=== PATIENT | male | born 1975 | race Caucasian/White ===

== ENCOUNTER → 2023-03-10 14:46 | Outpatient (BNVA) | payer SELFPAY | PROVIDERS: Visit Provider Physician Assistant Medical | DX: Z02.79 Encounter for issue of other medical certificate (principal) ==

== ENCOUNTER → 2024-04-13 15:08 | Outpatient (BNVA) | payer SELFPAY | PROVIDERS: Visit Provider Physician Assistant ==

== ENCOUNTER 2024-08-11 04:06 | Emergency (ER) | payer BC, SELFPAY ==
[2024-08-11] VITALS (9 sets, daily range): BP systolic 98–147; BP diastolic 51–82; PULSE 69–96; RESP 14–22; TEMP 36.1–37.1; O2SAT 94–100; BMI 27.3
[2024-08-11] MEDS: EPINEPHrine 1 MG/ML VIAL 0.3 MG IM (04:21)
[2024-08-11] MEDS: Famotidine/PF 20 MG/2 ML VIAL IVPUSH (04:22)
[2024-08-11] MEDS: methylPREDNISolone Sod Succ 125 MG/2 ML VIAL IVPUSH ×2 (04:22→06:17)
[2024-08-11] MEDS: diphenhydrAMINE HCL 50 MG/ML VIAL IVPUSH ×2 (04:22→06:17)
[2024-08-11] MEDS: 0.9 % Sodium Chloride 1,000 ML 999 ML IVCONT (04:23)
--- NOTE | 2024-08-11 04:24 | ED.ALLEREA ---
HPI - Allergic Reaction General Chief complaint: Allergic Reaction Stated complaint: allergic reaction Time Seen by Provider: 08/11/24 04:19 Source: patient and family Mode of arrival: ambulatory Limitations: no limitations History of Present Illness ED Provider: Dr. Marlee Vail HPI narrative: Patient comes to the emergency room complaining of feeling that his throat is swelling up. Patient has a bit short of breath and a bit tight. Patient states that this has happened multiple times. It is always food related. Patient denies any hives, no itchiness, no wheezing. Patient states that this has happened before usually with certain foods but unclear what it is. Patient has been seen multiple times by allergies, all the skin scratch test are nonspecific. 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 Patient denies being on any blood pressure medications Related Data Allergies Allergy/AdvReac Type Severity Reaction Status Date / Time No Known Allergies Allergy Verified 08/11/24 04:21 Review of Systems Review of Systems: Constitutional : No Weight loss, No Fever, No Chills, No Night Sweats, No Fatigue, No Malaise ENT/Mouth : No Hearing loss, No Ear Pain, No Nasal Congestion, No Sinus Pain, No Hoarseness, no sore throat, complaining of throat swelling. No Rhinorrhea, No Swallowing Difficulty Eyes: No Eye Pain, No Swelling, No Redness, No Foreign Body, No Discharge, No Vision Changes Cardiovascular : No Chest Pain, No SOB, No Dyspnea on Exertion, No Orthopnea, No Edema, No Palpitations Respiratory : No Cough, No Sputum, No Wheezing, No Smoke Exposure, No Dyspnea Gastrointestinal : No Nausea, No Vomiting, No Diarrhea, No Constipation, No abdominal Pain, No Hematochezia, No Melena Genitourinary : no irregular bleeding, No Dysuria, No Urinary Frequency, No Hematuria, No Urinary Incontinence, No Urgency, No Flank Pain, No Urinary Flow Changes, No Hesitancy Musculoskeletal : No joint pain, No Myalgias, No Joint Swelling Skin : No Skin Lesions, No rash Neuro : No Weakness, No Numbness, No Paresthesias, No Loss of Consciousness, No Dizziness, No Headache Psych : No Anxiety/Panic, No Depression, No SI/HI/AH/VH, No Social Issues, Heme/Lymph: No Bruising, No Bleeding,No Lymphadenopathy Endocrine : No Polyuria, No Polydipsia, No Temperature Intolerance [facility] Past Medical History Medical History (Updated 08/11/24 @ 06:15 by Marlee Vail MD) Hyperlipidemia Social History Social History Smoked in Last 30 Days: No Advance Directives: No Physical Exam ED Vital Signs: Vital Signs - 24 hr 08/11/24 04:19 08/11/24 04:21 08/11/24 04:28 Temperature 97.0 F Pulse Rate 69 87 88 Respiratory Rate 22 H 20 Blood Pressure 98/51 L 134/82 Pulse Oximetry 100 100 Oxygen Delivery Method Room Air 08/11/24 04:36 08/11/24 04:47 08/11/24 05:01 Temperature Pulse Rate 85 88 84 Respiratory Rate 16 16 Blood Pressure 147/76 H 134/74 135/74 Pulse Oximetry 98 97 98 Oxygen Delivery Method Room Air Room Air Room Air 08/11/24 06:00 Temperature 98.7 F Pulse Rate 96 Respiratory Rate 14 Blood Pressure 117/63 Pulse Oximetry 94 Oxygen Delivery Method Room Air BMI result Body Mass Index 27.3 Const Other: Appearance: Alert. Oriented X3. No acute distress. Eyes: Pupils equal, round and reactive to light. ENT: Patient's lips and tongue within normal limits, soft palate edematous, phlegmon and like appearance, patient has angioedema Neck: Normal inspection. Neck supple. No lymph nodes noted. No crepitus CVS: Normal heart rate and rhythm. Pulses normal. Normal S1 and S2 Respiratory: No respiratory distress. Breath sounds normal. No Wheezing. No rales Abdomen: Soft and nontender. No rigidity. No distention. Skin: Skin warm and dry. Normal skin color. Normal skin turgor. Extremities: No lower extremity edema. No Lacerations. No Rash Neuro: Oriented X 3. No motor deficit. No sensory deficit. Moving all extremities. No slurred speech. CN 2 through 12 grossly intact Psych: calm, cooperative, normal affect Course Course Course Narrative: Patient being given epinephrine IM, IV famotidine diphenhydramine and methylprednisolone, also normal saline This does not look like a typical allergic reaction, but clearly patient does have angioedema. Possibly undiagnosed hereditary angioedema? Medications Administered Discontinued Medications Generic Name Dose Route Start Last Admin Trade Name Freq PRN Reason Stop Dose Admin Diphenhydramine HCl 50 mg 08/11/24 04:19 08/11/24 04:22 Diphenhydramine Hcl 50 Mg/Ml Vial IVPUSH 08/11/24 04:20 50 mg ONCE ONE Administration Diphenhydramine HCl 50 mg 08/11/24 06:08 08/11/24 06:17 Diphenhydramine Hcl 50 Mg/Ml Vial IVPUSH 08/11/24 06:09 50 mg ONCE ONE Administration Epinephrine 0.3 mg 08/11/24 04:19 08/11/24 04:21 Epinephrine 1 Mg/Ml Vial IM 08/11/24 04:20 0.3 mg STAT STA Administration Famotidine 20 mg 08/11/24 04:19 08/11/24 04:22 Famotidine/Pf 20 Mg/2 Ml Vial IVPUSH 08/11/24 04:20 20 mg ONCE ONE Administration Sodium Chloride 1,000 mls @ 999 mls/hr 08/11/24 04:19 08/11/24 05:29 Ns IVCONT 08/11/24 05:19 Infused .Q1H1M ONE Infusion Methylprednisolone Sodium Succinate 125 mg 08/11/24 04:19 08/11/24 04:22 Methylprednisolone Sod Succ 125 Mg/2 Ml Vial IVPUSH 08/11/24 04:20 125 mg ONCE ONE Administration Methylprednisolone Sodium Succinate 125 mg 08/11/24 06:08 08/11/24 06:17 Methylprednisolone Sod Succ 125 Mg/2 Ml Vial IVPUSH 08/11/24 06:09 125 mg ONCE ONE Administration Medical Decision Making Medical Decision Making MDM Narrative: No significant abnormality in patient's hematology and chemistry. After the 1st course of IV medications, patient states that he feels much better. Patient states that his throat feels less swollen, can swallow and breathe better. Denies any chest pressure or tightness Patient's vitals have remained stable. Patient is still has edema in the uvula and soft palate but seems to be reduced than when he 1st came in Patient receiving a 2nd dose of Solu-Medrol and Benadryl. Then we will reassess. I discussed with the patient that the recommendation is hospitalization. Given the amount of swelling that he had, it would be best to keep him in the hospital. Patient states that he would prefer to go home if he has improvement. We will go ahead and give him the 2nd dose of medications, if he has significant improvement, patient may be able to go home. However , this is unlikely. Sign out given to my colleague Dr. Avalos Differential Diagnosis Differential Diagnoses: The differential diagnosis associated with the presentation includes (Anaphylaxis, angioedema, hereditary angioedema) Admission/Observation Consideration of admission/observation: Escalation of care including admission/observation considered Lab Data MDM Lab Attestation statement: I reviewed the patient's lab results. 08/11/24 04:46 08/11/24 04:46 Labs: Lab Results 08/11/24 Range/Units 04:46 WBC 7.3 (4.8-10.8) X10*3/uL RBC 5.34 (4.60-5.80) X10*6/uL Hgb 15.6 (14.0-18.0) g/dl Hct 45.4 (42.0-52.0) % MCV 85.0 (80.0-98.0) fL MCH 29.2 (27.0-33.0) pg MCHC 34.4 (31.0-36.0) g/dl RDW 12.5 (11.0-16.0) % Plt Count 236 (160-400) X10*3/uL MPV 10.4 (9.4-12.4) fL Immature Gran % (Auto) 0.3 (0.0-0.4) % Neut % (Auto) 46.0 (45-73) % Lymph % (Auto) 39.3 (20-40) % Kern % (Auto) 10.5 (2-11) % Eos % (Auto) 3.3 (0-4) % Baso % (Auto) 0.6 (0-2) % Lymph # (Auto) 2.9 (1.2-4.9) X10*3/uL Kern # (Auto) 0.8 (0.1-1.2) X10*3/uL Eos # (Auto) 0.2 (0.0-0.4) X10*3/uL Baso # (Auto) 0.0 (0.0-0.2) X10*3/uL Abs Immat Gran (auto) 0.02 (0.00-0.03) X10*3/uL Absolute Neuts (auto) 3.4 (2.0-8.3) x10*3/uL Absolute Nucleated RBC 0.000 (0.0-0.012) X10*3/uL Nucleated RBC % (auto) 0.0 (0.0-0.2) /100WBC Sodium 141 (135-145) mmol/L Potassium 4.1 (3.3-5.1) mmol/L Chloride 108 (96-108) mmol/L Carbon Dioxide 23 (22-29) mmol/L Anion Gap 14 (12-20) BUN 17 H (9-16) mg/dL Creatinine 0.83 (0.5-1.4) mg/dL Estim Creat Clear Calc 108.8 Estimated GFR > 60 Random Glucose 182 H (60-115) mg/dL Calcium 8.8 (8.4-10.2) mg/dL Critical Care Time Critical Care Time Critical Care Time: Yes Total Critical Care Time: 60 Attestation: Please follow-up with your primary care physician tomorrow. If you have any worsening or new symptoms, please return to the emergency room or call 911 Discharge Plan Discharge Clinical Impression: Angioedema Patient Disposition: Still a Patient Print Language: Georgian
[2024-08-11 04:50] LABS: MANUAL DIFF FLAG NO
[2024-08-11 04:51] LABS: Basophils Percent Auto 0.6 % (0-2); Eosinophils Absolute Auto 0.2 X10*3/uL (0.0-0.4); Eosinophils Percent Auto 3.3 % (0-4); Hematocrit 45.4 % (42.0-52.0); Hemoglobin 15.6 g/dl (14.0-18.0); Imm Gran Abs Auto 0.02 X10*3/uL (0.00-0.03); Imm Gran Pct Auto 0.3 % (0.0-0.4); Lymphocytes Absolute Auto 2.9 X10*3/uL (1.2-4.9); Lymphocytes Percent Auto 39.3 % (20-40); Mean Corpuscular HGB Conc 34.4 g/dl (31.0-36.0); Mean Corpuscular Hemoglobin 29.2 pg (27.0-33.0); Mean Platelet Volume 10.4 fL (9.4-12.4); Monocytes Absolute Auto 0.8 X10*3/uL (0.1-1.2); Monocytes Percent Auto 10.5 % (2-11); Neutrophils Absolute Auto 3.4 x10*3/uL (2.0-8.3); Platelet Count 236 X10*3/uL (160-400); Red Blood Count 5.34 X10*6/uL (4.60-5.80); Red Cell Distribution Width 12.5 % (11.0-16.0); White Blood Count 7.3 X10*3/uL (4.8-10.8)
[2024-08-11 05:03] LABS: Anion Gap 14 (12-20); Blood Urea Nitrogen 17 mg/dL (9-16); Calcium 8.8 mg/dL (8.4-10.2); Carbon Dioxide 23 mmol/L (22-29); Chloride 108 mmol/L (96-108); Creatinine Clr Calc Pharmacy 108.8; Estimated Glomerular Filt Rate > 60; Glucose Random 182 mg/dL (60-115); Potassium 4.1 mmol/L (3.3-5.1); Sodium 141 mmol/L (135-145)
== END 2024-08-11 10:38 | disposition left against medical advice (07) ==
PROVIDERS: Emergency Provider Emergency Medicine; PCP Internal Medicine
DX: T78.3XXA Angioneurotic edema, initial encounter (principal); X58.XXXA Exposure to other specified factors, initial encounter
CPT/HCPCS: 36415; 80048; 85025; 96361; 96372; 96374; 96375; 96376; 99284; J0171; J1200; J2919